=== PATIENT | female | born 1990 | race Caucasian/White ===

== ENCOUNTER 2021-03-08 08:43 | Outpatient (REF) | payer BC, SELFPAY ==
[2021-03-14 15:01] LABS: HPV mRNA E6/E7 rflx Not Detected (Not Detected)
== END 2021-03-08 08:44 | disposition home or self-care (01) ==
LOC: HO.LAB 08:43
PROVIDERS: Visit Provider Advanced Practice Midwife
DX: Z01.419 Encounter for gynecological examination (general) (routine) without abnormal findings (principal)
CPT/HCPCS: 87624; 88142